=== PATIENT | female | born 2000 | race Two or more races ===

== ENCOUNTER 2020-04-09 17:26 | Emergency (ER) | payer SELFPAY ==
[~2020-04-09] VITALS: Ht 152.4 cm; Wt 103.6 kg
[2020-04-09 17:30] VITALS: BP 147/94
--- NOTE | 2020-04-09 17:47 | NUR ---
PT WITH C/O BILATERAL EYE PAIN X3 DAYS, PT TEARFUL IN TRIAGE. STATES "THEY JUST HURT AND ARE ALL PUFFY" DENIES MIRELES, VISION CHANGES. NO EYE DISCHARGE
[2020-04-09] MEDS ORDERED: FLUORESCEIN OPHTHALMIC 1 MG STRIP ONE (17:49)
--- NOTE | 2020-04-09 18:14 | NUR ---
TASK RN: Patient/Caregiver given discharge instructions and they have confirmed that they understand the instructions. Patient ambulatory with steady gait.
== END 2020-04-09 18:15 | disposition home or self-care (01) ==
LOC: ED 17:46
DX: H10.023 Other mucopurulent conjunctivitis, bilateral (principal)
CPT/HCPCS: 99283